=== PATIENT | female | born 1995 | race Hispanic/Latino ===

== ENCOUNTER 2019-04-30 18:15 | Emergency (ER) | payer OTHER ==
[2019-05-04 06:10] LABS: HEPATITIS A ANTIBODY IGM Negative (Negative); HEPATITIS B CORE IGM Negative (Negative); HEPATITIS Bs ANTIGEN SCREEN P Negative (Negative)
== END 2019-04-30 20:46 | disposition home or self-care (01) ==
LOC: EDH 18:15
DX: Z77.21 Contact with and (suspected) exposure to potentially hazardous body fluids (principal); Z72.0 Tobacco use; Z90.89 Acquired absence of other organs
CPT/HCPCS: 36415; 80074; 86701; 86706; 87390